=== PATIENT | female | born 1970 | race Hispanic/Latino ===

== ENCOUNTER 2020-11-08 06:31 | Emergency (ER) | payer OTHER ==
[~2020-11-08] VITALS: Ht 162.6 cm; Wt 113.9 kg
[~2020-11-08 06:31] MED LIST: GABAPENTIN300 MG PO; GLIMEPIRIDE2 MG PO; LISINOPRIL-HCT1 EACH PO; METFORMIN HCL500 MG PO; SIMVASTATIN20 MG PO
[2020-11-08] MEDS ORDERED: KETOROLAC TROMETHAMINE 30 MG/ML VIAL IV STA ×2 (06:40)
[2020-11-08] MEDS ORDERED: DEXAMETHASONE SOD PHOS 10 MG/1 ML VIAL IM ONE ×2 (06:45)
[2020-11-08] MEDS ORDERED: ACETAMINOPHEN/CODEINE 300MG - 30MG TAB PO ONE (07:00)
[2020-11-08 09:32] VITALS: BP 146/70
== END 2020-11-08 09:34 | disposition home or self-care (01) ==
LOC: ER 07:34
DX: M79.605 Pain in left leg (principal); E78.00 Pure hypercholesterolemia, unspecified; G62.9 Polyneuropathy, unspecified; L40.9 Psoriasis, unspecified
CPT/HCPCS: 73502; 73562; 99283; J1100; J1885

== ENCOUNTER 2021-10-08 21:40 | Emergency (ER) | payer OTHER ==
[~2021-10-08] VITALS: Ht 162.6 cm; Wt 113.9 kg
[~2021-10-08 21:40] MED LIST changes: +SODIUM CHLORIDE FLUSH 10 ML SYR IV PRN
[2021-10-08] MEDS ORDERED: ONDANSETRON HCL INJ 2MG/ML 2ML 2 MG/ML VIAL IV STA (23:17)
[2021-10-08 23:25] LABS: BASOPHILS % 0.4 % (0.0-1.0); EOSINOPHILS # (AUTO) 0.2 (0.0-0.4); EOSINOPHILS % 1.8 % (0.0-6.0); HEMATOCRIT 38.3 % (34.2-44.1); HEMOGLOBIN 12.6 g/dL (12.0-16.0); LYMPHOCYTES # (AUTO) 2.1 (1.0-3.2); LYMPHOCYTES % 22.8 % (18.0-39.1); MEAN CORPUSCULAR HEMOGLOBIN 30.8 pg (28-32); MEAN CORPUSCULAR HGB CONC 32.9 g/dL (31-35); MEAN CORPUSCULAR VOLUME 93.6 fL (81-99); MONOCYTES # (AUTO) 0.4 (0.2-0.8); MONOCYTES % 4.3 % (4.4-11.3); NEUTROPHILS # (AUTO) 6.6 (2.1-6.9); NEUTROPHILS % 70.4 % (38.7-80.0); PLATELET COUNT 373 x10e3/uL (140-360); RED BLOOD COUNT 4.09 x10e6/uL (3.6-5.1); RED CELL DISTRIBUTION WIDTH 12.5 % (11.7-14.4)
[2021-10-08 23:27] LABS: CLARITY,URINE CLEAR (CLEAR); COLOR,URINE YELLOW (YELLOW); LEUKOCYTE ESTERASE ,URINE NEGATIVE (NEGATIVE); NITRITE,URINE NEGATIVE (NEGATIVE)
[2021-10-08 23:28] LABS: KETONES,URINE NEGATIVE (NEGATIVE); PROTEIN,URINE DIPSTICK >=300 (NEGATIVE); URINE UROBILINOGEN 0.2 mg/dL (0.2 - 1)
[2021-10-08 23:30] LABS: BACTERIA,URINE FEW /HPF; EPITHELIAL CELLS,URINE MODERATE /LPF; YEAST,URINE MANY
[2021-10-08] MEDS ORDERED: Morphine 4mg INJECTION 4 MG/ML INJ IV ONE (23:30)
[2021-10-08 23:38] LABS: INR 0.8; PARTIAL THROMBOPLASTIN TIME 24.2 seconds (23.8-35.5); PROTHROMBIN TIME 11.9 seconds (11.9-14.5)
[2021-10-08 23:48] LABS: ALBUMIN/GLOBULIN RATIO 0.7 (0.8-2.0); ANION GAP 17.4 mmol/L (8-16); CALCIUM 9.1 mg/dL (8.4-10.2); CREATININE, SERUM 1.2 mg/dL (0.57-1.11); POTASSIUM 4.4 mmol/L (3.5-5.1)
[2021-10-09] MEDS ORDERED: INSULIN REGULAR, HUMAN 100 UNIT/1 ML IV ONE
[2021-10-09] MEDS ORDERED: INSULIN REGULAR, HUMAN 100 UNIT/1 ML SQ ONE ×2 (00:30)
[2021-10-09] MEDS ORDERED: KETOROLAC TROMETHAMINE 30 MG/ML VIAL IV STA (03:25)
[2021-10-09] MEDS ORDERED: ONDANSETRON ODT4 MG PO (03:31)
[2021-10-09] MEDS ORDERED: DIFLUCAN100 MG PO (03:31)
[2021-10-09] MEDS ORDERED: CEFDINIR300 MG PO (03:31)
[2021-10-09] MEDS ORDERED: NAPROSYN500 MG PO (03:31)
[2021-10-09 04:10] VITALS: BP_SYST 135
== END 2021-10-09 04:05 | disposition home or self-care (01) ==
LOC: ER 23:14
DX: R10.30 Lower abdominal pain, unspecified (principal); N30.90 Cystitis, unspecified without hematuria; D25.9 Leiomyoma of uterus, unspecified; E11.65 Type 2 diabetes mellitus with hyperglycemia; R11.0 Nausea; I10 Essential (primary) hypertension; E78.00 Pure hypercholesterolemia, unspecified; L40.50 Arthropathic psoriasis, unspecified; F17.210 Nicotine dependence, cigarettes, uncomplicated
CPT/HCPCS: 36415; 74176; 80053; 81001; 82948; 83690; 85025; 85610; 85730; 99284; J1817; J1885; J2270; J2405

== ENCOUNTER 2024-06-10 14:59 | Observation (INO) | payer BC, MEDICARE, OTHER ==
[~2024-06-10] VITALS: Ht 162.6 cm; Wt 89.8 kg
[~2024-06-10 14:59] MED LIST changes: +AZITHROMYCIN250 MG PO; +CEFDINIR300 MG PO; +DIFLUCAN100 MG PO; +NAPROSYN500 MG PO; +ONDANSETRON ODT4 MG PO; +PREDNISONE20 MG PO; -SODIUM CHLORIDE FLUSH 10 ML SYR IV PRN; +VENTOLIN HFA18 GM INH
[2024-06-10 15:05] VITALS: TEMP 98.3
[2024-06-10 15:49] LABS: BASOPHILS # (AUTO) 0.1 (0.0-0.1); BASOPHILS % 0.6 % (0.0-1.0); EOSINOPHILS # (AUTO) 0.3 (0.0-0.4); EOSINOPHILS % 2.8 % (0.0-6.0); HEMATOCRIT 35.3 % (34.2-44.1); HEMOGLOBIN 10.8 g/dL (12.0-16.0); LYMPHOCYTES # (AUTO) 1.2 (1.0-3.2); LYMPHOCYTES % 13.2 % (18.0-39.1); MEAN CORPUSCULAR HEMOGLOBIN 29.7 pg (28-32); MEAN CORPUSCULAR HGB CONC 30.6 g/dL (31-35); MONOCYTES # (AUTO) 0.3 (0.2-0.8); MONOCYTES % 3.4 % (4.4-11.3); NEUTROPHILS # (AUTO) 7.4 (2.1-6.9); NEUTROPHILS % 79.7 % (38.7-80.0); PLATELET COUNT 310 x10e3/uL (140-360); RED BLOOD COUNT 3.64 x10e6/uL (3.6-5.1); RED CELL DISTRIBUTION WIDTH 15.7 % (11.7-14.4); WHITE BLOOD COUNT 9.31 x10e3/uL (4.8-10.8)
[2024-06-10] MEDS: LIDOCAINE VISC 2% SOLN 15 ML UDC PO ONE (16:25)
[2024-06-10] MEDS: ONDANSETRON HCL INJ 2MG/ML 2ML 2 MG/ML VIAL IV STA (16:25)
[2024-06-10] MEDS: BELLADONNA ALK/PHENOBARBITAL 5 ML UDC PO STA (16:25)
[2024-06-10] MEDS: MAGNESIUM/ALUMINUM/SIMETHICONE 30 ML UDC PO ONE (16:26)
[2024-06-10 16:47] LABS: BILIRUBIN,URINE NEGATIVE (NEGATIVE); COLOR,URINE YELLOW (YELLOW); GLUCOSE, URINE 1+ (NEGATIVE); KETONES,URINE NEGATIVE (NEGATIVE); LEUKOCYTE ESTERASE ,URINE TRACE (NEGATIVE); NITRITE,URINE NEGATIVE (NEGATIVE); PH,URINE 5.5 (5 - 7); URINE UROBILINOGEN 0.2 mg/dL (0.2 - 1)
[2024-06-10 16:48] LABS: PROTEIN,URINE DIPSTICK >=300 (NEGATIVE)
[2024-06-10 16:49] LABS: CLARITY,URINE HAZY (CLEAR)
[2024-06-10 16:55] LABS: EPITHELIAL CELLS,URINE FEW /LPF; RBC,URINE 21-50 /HPF (0-5); WBC,URINE (MAN) 21-50 /HPF (0-5)
[2024-06-10 16:56] LABS: YEAST,URINE FEW
[2024-06-10] MEDS ORDERED: CEFDINIR300 MG PO (17:23)
[2024-06-10] MEDS: PROMETHAZINE 12.5MG/ NACL 0.9% 12.5 MG/50 ML BAG IV ONE (17:39)
[2024-06-10 17:52] VITALS: PULSE 92; RESP 18
[2024-06-10 17:53] LABS: TROPONIN I 0.026 ng/mL (0-0.300)
[2024-06-10 17:56] LABS: ALANINE AMINOTRANSFERASE 14 IU/L (0-55); ALBUMIN/GLOBULIN RATIO 0.7 (0.8-2.0); ALKALINE PHOSPHATASE 116 IU/L (40-150); ANION GAP 29.1 mmol/L (8-16); BILIRUBIN,TOTAL 0.2 mg/dL (0.2-1.2); BLOOD UREA NITROGEN 137 mg/dL (7-26); CALCIUM 8.2 mg/dL (8.4-10.2); CHLORIDE 109 mmol/L (98-107); CREATININE, SERUM 8.63 mg/dL (0.57-1.11); EST GLOMERULAR FILTRATION RATE 5 ML/MIN (>=60); GLUCOSE 127 mg/dL (74-118); LIPASE 57 U/L (8-78); SODIUM 140 mmol/L (136-145); TOTAL PROTEIN 7.3 g/dL (6.5-8.1)
[2024-06-10 18:00] LABS: CARBON DIOXIDE 8 mmol/L (22-29); POTASSIUM 6.1 mmol/L (3.5-5.1)
[2024-06-10 18:18] VITALS: PULSE 92; RESP 20; O2SAT 98
[2024-06-10] MEDS: ALBUTEROL SULF 0.083% NEB SOLN 3 ML NEB NEB STA (18:22)
[2024-06-10] MEDS: CALCIUM GLUC 1 G/50 ML NACL 50 ML IV SCH (18:35)
[2024-06-10] MEDS: SODIUM BICARBONATE 8.4% INJ 50 ML SYR IV STA (18:36)
[2024-06-10] MEDS: SOD POLYSTYRENE SULFONATE SUSP 15 GM/60 ML BTL PO ONE (18:36)
[2024-06-10] MEDS: INSULIN REGULAR, HUMAN 100 UNIT/1 ML IV ONE (18:38)
[2024-06-10] MEDS: DEXTROSE 50% SYRINGE 50 ML IV STA (18:38)
[2024-06-10 21:01] VITALS: BP 167/81; PULSE 89; RESP 20; TEMP 97.3; O2SAT 100
[2024-06-10 23:36] VITALS: BP 167/81; PULSE 89; RESP 20; TEMP 97.3; O2SAT 100
[2024-06-10 23:40] VITALS: BP 167/81; PULSE 89; RESP 20; TEMP 97.3; O2SAT 100
[2024-06-11] VITALS: BP 170/92; PULSE 92; RESP 16; TEMP 97.9; O2SAT 100
[2024-06-11] MEDS ORDERED: HEPARIN SOD (PORCINE) 1000 UNIT/ML SDV ONE (00:11)
[2024-06-11] MEDS ORDERED: SODIUM CHLORIDE 0.9% 250ML 250 ML ONE (00:26)
[2024-06-11] MEDS ORDERED: CALCIUM GLUC 1 G/50 ML NACL 50 ML IV ONE (00:38)
[2024-06-11] MEDS ORDERED: OMEPRAZOLE40 MG PO (01:36)
[2024-06-11] MEDS ORDERED: ATORVASTATIN CA20 MG PO (01:36)
[2024-06-11] MEDS ORDERED: BUPROPION XL150 MG PO (01:36)
[2024-06-11] MEDS ORDERED: CLONIDINE HCL0.1 MG PO ×2 (01:36→13:58)
[2024-06-11] MEDS ORDERED: AMLODIPINE BESY10 MG PO (01:36)
[2024-06-11] MEDS ORDERED: HYDROXYZINE HCL10 MG PO (01:36)
[2024-06-11] MEDS ORDERED: CALCIUM ACETAT667 M1 PO (01:36)
[2024-06-11] MEDS ORDERED: FUROSEMIDE40 MG PO (01:36)
[2024-06-11] MEDS ORDERED: SUMATRIPTAN SUC25 MG PO (01:36)
[2024-06-11] MEDS ORDERED: CYCLOBENZAPRINE10 MG PO (01:36)
[2024-06-11] MEDS ORDERED: SERTRALINE HCL50 MG PO (01:36)
[2024-06-11] MEDS ORDERED: FERROUS SULFAT325 MG PO (01:36)
[2024-06-11] MEDS ORDERED: BUTALB-ASPIRIN1 EACH (01:36)
[2024-06-11 04:00] VITALS: BP 186/87; PULSE 98; RESP 20; TEMP 98.2; O2SAT 94
[2024-06-11 05:48] LABS: BASOPHILS # (AUTO) 0.1 (0.0-0.1); BASOPHILS % 0.8 % (0.0-1.0); EOSINOPHILS # (AUTO) 0.2 (0.0-0.4); EOSINOPHILS % 3.6 % (0.0-6.0); HEMATOCRIT 29.8 % (34.2-44.1); HEMOGLOBIN 9.2 g/dL (12.0-16.0); LYMPHOCYTES # (AUTO) 1.1 (1.0-3.2); LYMPHOCYTES % 18.5 % (18.0-39.1); MEAN CORPUSCULAR HEMOGLOBIN 29.8 pg (28-32); MEAN CORPUSCULAR HGB CONC 30.9 g/dL (31-35); MEAN CORPUSCULAR VOLUME 96.4 fL (81-99); MONOCYTES # (AUTO) 0.4 (0.2-0.8); MONOCYTES % 6.3 % (4.4-11.3); NEUTROPHILS # (AUTO) 4.3 (2.1-6.9); NEUTROPHILS % 70.5 % (38.7-80.0); PLATELET COUNT 286 x10e3/uL (140-360); RED BLOOD COUNT 3.09 x10e6/uL (3.6-5.1); RED CELL DISTRIBUTION WIDTH 15.6 % (11.7-14.4); WHITE BLOOD COUNT 6.15 x10e3/uL (4.8-10.8)
[2024-06-11 06:30] LABS: ANION GAP 23.7 mmol/L (8-16); CALCIUM 8.7 mg/dL (8.4-10.2); CREATININE, SERUM 5.77 mg/dL (0.57-1.11); POTASSIUM 3.7 mmol/L (3.5-5.1)
[2024-06-11 08:00] VITALS: BP 174/98; PULSE 97; RESP 19; TEMP 97.6; O2SAT 94
[2024-06-11] MEDS ORDERED: SODIUM CHLORIDE 0.9% 1000ML 2,000 ML ONE (10:20)
[2024-06-11] MEDS ORDERED: HEPARIN SOD (PORCINE) 1000 UNIT/ML SDV IV PRN ×2 (11:30→11:45)
[2024-06-11] MEDS ORDERED: ALBUMIN 25% 12.5GM 0.25 GM/ML BTL IV PRN (11:30)
[2024-06-11] MEDS ORDERED: SODIUM CHLORIDE 0.9% 1000ML 2,000 ML IV PRN (11:30)
[2024-06-11 12:00] VITALS: BP 204/99; PULSE 99; RESP 16; TEMP 97.6; O2SAT 97
[2024-06-11] MEDS ORDERED: CEFUROXIME250 MG PO (13:54)
[2024-06-11] MEDS ORDERED: SODIUM BICARBO650 MG PO (13:58)
[2024-06-11] MEDS ORDERED: LABETALOL HCL200 MG PO (13:58)
[2024-06-11] MEDS: LABETALOL HCL 200 MG TAB PO SCH (15:21)
[2024-06-11] MEDS: CLONIDINE HCL 0.1 MG TAB PO SCH (15:22)
[2024-06-11 16:00] VITALS: BP 192/92; PULSE 99; RESP 18; TEMP 97.8; O2SAT 98
[2024-06-11] MEDS: SODIUM BICARBONATE 650 MG TAB PO SCH (16:53)
== END 2024-06-11 19:10 | disposition home or self-care (01) ==
LOC: ER 15:16 → ERHOLD 18:06 → MED/SURG2 19:53
PROVIDERS: ADMIT Internal Medicine; ATTEND Internal Medicine
DX: E87.5 Hyperkalemia (principal); I12.0 Hypertensive chronic kidney disease with stage 5 chronic kidney disease or end stage renal disease; N39.0 Urinary tract infection, site not specified; E11.65 Type 2 diabetes mellitus with hyperglycemia; E11.22 Type 2 diabetes mellitus with diabetic chronic kidney disease; N18.6 End stage renal disease; Z99.2 Dependence on renal dialysis; E11.51 Type 2 diabetes mellitus with diabetic peripheral angiopathy without gangrene; Z79.84 Long term (current) use of oral hypoglycemic drugs; E87.20 Acidosis, unspecified
CPT/HCPCS: 36415 ×2; 71045; 80048; 80053; 81001; 82948; 83690; 84484; 85025 ×2; 87086; 90970 ×2; 93005; 94640; 94799; 99284; G0378 ×2; J0696; J1644; J2405; J2470; J2550; J7030; J7050; J7799

== ENCOUNTER 2024-09-09 17:26 | Inpatient (IN) | payer BC ==
[~2024-09-09] VITALS: Ht 162.6 cm; Wt 89.8 kg
[~2024-09-09 17:26] MED LIST changes: +AMLODIPINE BESY10 MG PO; +ATORVASTATIN CA20 MG PO; +BUPROPION XL150 MG PO; +BUTALB-ASPIRIN1 EACH; +CALCIUM ACETAT667 M1 PO; +CEFUROXIME250 MG PO; +CLONIDINE HCL0.1 MG PO; +CYCLOBENZAPRINE10 MG PO; +FERROUS SULFAT325 MG PO; +FUROSEMIDE40 MG PO; +HYDROXYZINE HCL10 MG PO; +LABETALOL HCL200 MG PO; +OMEPRAZOLE40 MG PO; +SERTRALINE HCL50 MG PO; +SODIUM BICARBO650 MG PO; +SUMATRIPTAN SUC25 MG PO
[2024-09-09 17:30] VITALS: TEMP 97.7
[2024-09-09] MEDS: SODIUM CHLORIDE 0.9% 1000ML 1,000 ML IV STA (18:50)
[2024-09-09] MEDS: ONDANSETRON HCL INJ 2MG/ML 2ML 2 MG/ML VIAL IV STA (18:50)
[2024-09-09] MEDS: Morphine 4mg INJECTION 4 MG/ML INJ IV STA (18:51)
[2024-09-09] MEDS: MAGNESIUM/ALUMINUM/SIMETHICONE 30 ML UDC PO STA (18:51)
[2024-09-09] MEDS: LIDOCAINE VISC 2% SOLN 15 ML UDC PO STA (18:51)
[2024-09-09] MEDS: BELLADONNA ALK/PHENOBARBITAL 5 ML UDC PO ONE (18:51)
[2024-09-09 19:03] LABS: BASOPHILS % 0.7 % (0.0-1.0); EOSINOPHILS % 3.1 % (0.0-6.0); LYMPHOCYTES % 17.6 % (18.0-39.1); MONOCYTES % 6.2 % (4.4-11.3); NEUTROPHILS % 71.9 % (38.7-80.0); RED CELL DISTRIBUTION WIDTH 18.5 % (11.7-14.4)
[2024-09-09 19:14] LABS: LEUKOCYTE ESTERASE ,URINE NEGATIVE (NEGATIVE); PROTEIN,URINE DIPSTICK >=300 (NEGATIVE); URINE UROBILINOGEN 0.2 mg/dL (0.2 - 1)
[2024-09-09 19:50] LABS: EPITHELIAL CELLS,URINE FEW /LPF
[2024-09-09 19:51] LABS: FINE GRANULAR CASTS,URINE 0 (0); HYALINE CASTS 0-1 (0-1)
[2024-09-09 19:54] LABS: COARSE GRANULAR CASTS,URINE 0 (0)
[2024-09-09 20:12] LABS: EST GLOMERULAR FILTRATION RATE 62 ML/MIN (>=60)
[2024-09-09] MEDS: PROMETHAZINE 25MG/ NS 50ML (IV) IV PRN (20:25)
[2024-09-09] MEDS ORDERED: IOPAMIDOL 370 MG/ML 100 ML INFUS..BTL INJ ONE (20:29)
[2024-09-09] MEDS ORDERED: PIPERACILLIN/TAZOBACTAM 3.375 GM VIAL ONE (22:41)
[2024-09-09] MEDS ORDERED: SODIUM CHLORIDE 0.9% 0 ML ONE (22:42)
[2024-09-09] MEDS: HYDRALAZINE HCL 20 MG/ML VIAL IV PRN (23:03)
[2024-09-10] VITALS (11 sets, daily range): BP systolic 152–184; BP diastolic 83–90; PULSE 89–100; RESP 16–18; TEMP 97.2–98; O2SAT 93–100
[2024-09-10] MEDS: SODIUM CHLORIDE 0.9% 1000ML 1,000 ML IV SCH (00:15)
[2024-09-10] MEDS ORDERED: HYDROCHLOROTHIA25 MG PO (02:38)
[2024-09-10] MEDS ORDERED: IMITREX50 MG PO (02:38)
[2024-09-10] MEDS ORDERED: NEURONTIN400 MG PO (02:38)
[2024-09-10] MEDS ORDERED: SUMATRIPTAN SUC25 MG PO (02:38)
[2024-09-10] MEDS ORDERED: ONDANSETRON ODT8 MG PO (02:38)
[2024-09-10] MEDS ORDERED: CEFUROXIME250 MG PO (02:38)
[2024-09-10] MEDS ORDERED: CEFDINIR300 MG PO (02:38)
[2024-09-10] MEDS ORDERED: PANTOPRAZOLE SO40 MG PO (02:38)
[2024-09-10] MEDS: ONDANSETRON HCL INJ 2MG/ML 2ML 2 MG/ML VIAL IV PRN (05:47)
[2024-09-10 09:34] LABS: INR 1.04
[2024-09-10] MEDS: PIPERACILLIN/TAZOBACTAM 3.375 GM VIAL ONE (10:04)
[2024-09-10] MEDS: Morphine 4mg INJECTION 4 MG/ML INJ IV PRN (12:55)
[2024-09-10] MEDS ORDERED: ALBUMIN 25% 12.5GM 0.25 GM/ML BTL IV PRN (15:15)
[2024-09-10] MEDS ORDERED: SODIUM CHLORIDE 0.9% IV PRN (15:15)
[2024-09-11] VITALS (7 sets, daily range): BP systolic 145–184; BP diastolic 75–94; PULSE 87–97; RESP 18–21; TEMP 97.3–97.8; O2SAT 94–100
[2024-09-11 06:30] LABS: HEPATITIS B SURFACE AB QUANT 41.7 mIU/mL (Immunity>10); HEPATITIS B SURFACE AG (P) Negative (Negative)
[2024-09-11] MEDS: POLYETHYLENE GLYCOL 3350 17 GM PACK PO SCH (09:00)
[2024-09-11] MEDS: ATORVASTATIN 20 MG TAB PO SCH (09:05)
[2024-09-11] MEDS: AMLODIPINE BESYLATE 10 MG TAB PO SCH (09:09)
[2024-09-11] MEDS: DIPHENHYDRAMINE HCL 25 MG CAP PO PRN (09:11)
[2024-09-11] MEDS: ACETAMINOPHEN 325 MG TAB PO PRN (09:11)
[2024-09-11] MEDS ORDERED: ACETAMINOPHEN325 M1 PO (11:57)
[2024-09-11] MEDS ORDERED: ONDANSETRON ODT4 MG PO (11:57)
== END 2024-09-11 17:38 | disposition home or self-care (01) | DRG 391 ==
LOC: ER 17:46 → ERHOLD 09-10 00:08 → ER 09-10 01:57 → MED/SURG3 09-10 03:36
PROVIDERS: ADMIT Internal Medicine; ATTEND Internal Medicine
PROC: 5A1D70Z Performance of Urinary Filtration, Intermittent, Less than 6 Hours Per Day (ICD-10-PCS; principal; 2024-09-10)
DX: A08.4 Viral intestinal infection, unspecified (principal); N18.6 End stage renal disease; I12.0 Hypertensive chronic kidney disease with stage 5 chronic kidney disease or end stage renal disease; J90 Pleural effusion, not elsewhere classified; I16.0 Hypertensive urgency; E11.22 Type 2 diabetes mellitus with diabetic chronic kidney disease; L40.50 Arthropathic psoriasis, unspecified; E11.42 Type 2 diabetes mellitus with diabetic polyneuropathy; E78.5 Hyperlipidemia, unspecified; R09.02 Hypoxemia; I25.10 Atherosclerotic heart disease of native coronary artery without angina pectoris; E66.9 Obesity, unspecified; G43.909 Migraine, unspecified, not intractable, without status migrainosus; E11.65 Type 2 diabetes mellitus with hyperglycemia; K21.9 Gastro-esophageal reflux disease without esophagitis; D63.1 Anemia in chronic kidney disease; Z91.040 Latex allergy status; Z91.018 Allergy to other foods; Z79.84 Long term (current) use of oral hypoglycemic drugs; Z99.2 Dependence on renal dialysis; Z68.34 Body mass index [BMI] 34.0-34.9, adult; Z99.81 Dependence on supplemental oxygen
CPT/HCPCS: 36415; 71045; 74177; 80053; 81001; 82550; 82948; 83690; 83880; 84484; 85025; 85610; 86706; 87340; 93005; 94799; 99284; J0360; J2270; J2405; J2470; J2543; J2550; J7030; J7050; Q9967

== ENCOUNTER 2024-12-01 17:15 | Inpatient (IN) | payer BC ==
[~2024-12-01] VITALS: Ht 162.6 cm; Wt 86.6 kg
[~2024-12-01 17:15] MED LIST changes: +ACETAMINOPHEN325 M1 PO; +HYDROCHLOROTHIA25 MG PO; +IMITREX50 MG PO; +NEURONTIN400 MG PO; +ONDANSETRON ODT8 MG PO; +PANTOPRAZOLE SO40 MG PO
[2024-12-01 18:13] VITALS: PULSE 76; RESP 18; TEMP 97.7; O2SAT 96
[2024-12-01] MEDS ORDERED: SODIUM CHLORIDE 0.9% 1000ML 1,000 ML IV STA (18:38)
[2024-12-01] MEDS ORDERED: Morphine 4mg INJECTION 4 MG/ML INJ IV STA (18:38)
[2024-12-01 18:44] LABS: BASOPHILS % 1.1 % (0.0-1.0); EOSINOPHILS % 5.0 % (0.0-6.0); LYMPHOCYTES % 23.1 % (18.0-39.1); MONOCYTES % 4.3 % (4.4-11.3); NEUTROPHILS % 66.1 % (38.7-80.0); RED CELL DISTRIBUTION WIDTH 15.9 % (11.7-14.4)
[2024-12-01 19:02] LABS: EST GLOMERULAR FILTRATION RATE 11.0 ML/MIN (>=60)
[2024-12-01] MEDS: KETOROLAC TROMETHAMINE 30 MG/ML VIAL IV STA (20:34)
[2024-12-01] MEDS: ONDANSETRON HCL INJ 2MG/ML 2ML 2 MG/ML VIAL IV STA (20:34)
[2024-12-01] MEDS ORDERED: SODIUM CHLORIDE FLUSH 10 ML SYR INJ PRN (21:00)
[2024-12-01] MEDS ORDERED: SEVOFLURANE INHAL SOLN 250 ML PEN BTL ONE (22:40)
[2024-12-01] MEDS: Morphine 4mg INJECTION 4 MG/ML INJ IM STA (23:42)
[2024-12-01] MEDS: Morphine 4mg INJECTION 4 MG/ML INJ IV PRN (23:42)
[2024-12-02] VITALS (8 sets, daily range): BP systolic 147–161; BP diastolic 64–77; PULSE 70–82; RESP 19–22; TEMP 97.6–97.9; O2SAT 95–100
[2024-12-02] MEDS: ONDANSETRON HCL INJ 2MG/ML 2ML 2 MG/ML VIAL IV PRN (02:48)
[2024-12-02] MEDS ORDERED: GUAIFENESIN/DEXTROMETHORPHAN LIQD 5 ML UDC PO PRN (03:45)
[2024-12-02 05:48] LABS: BASOPHILS % 0.8 % (0.0-1.0); EOSINOPHILS % 5.9 % (0.0-6.0); LYMPHOCYTES % 20.2 % (18.0-39.1); MONOCYTES % 9.0 % (4.4-11.3); NEUTROPHILS % 63.9 % (38.7-80.0); RED CELL DISTRIBUTION WIDTH 15.8 % (11.7-14.4)
[2024-12-02 06:13] LABS: EST GLOMERULAR FILTRATION RATE 9.0 ML/MIN (>=60)
[2024-12-02 06:45] LABS: INR 1.15
[2024-12-02] MEDS ORDERED: POLYETHYLENE GLYCOL 3350 17 GM PACK PO PRN (08:45)
[2024-12-02] MEDS: FOLIC ACID/CYANOCOB/PYRIDOXINE TAB PO SCH (12:59)
[2024-12-02] MEDS: LOPERAMIDE HCL 2 MG CAP PO ONE (12:59)
[2024-12-02 14:38] LABS: BODY FLUID COLOR YELLOW; BODY FLUID TYPE PLEURAL
[2024-12-02 14:39] LABS: BODY FLUID APPEARANCE CLEAR
[2024-12-02 14:44] LABS: WBC,BODY FLUID 88 cells/uL
[2024-12-02 15:32] LABS: LYMPHOCYTES,BODY FLUID 10 %; MONO/MACROPHG,BODY FLUID 14 %; NEUTROPHILS,BODY FLUID 2 %; OTHER CELLS,BODY FLUID 64 %; TOTAL CELLS COUNTED (DIFF) 100
[2024-12-02] MEDS ORDERED: LABETALOL HCL200 MG PO (15:42)
[2024-12-02] MEDS ORDERED: CLONIDINE HCL0.2 MG PO (15:42)
[2024-12-02] MEDS ORDERED: INSULIN AS100 UNIT/3 (15:42)
[2024-12-02] MEDS ORDERED: ZOLOFT50 MG PO (15:42)
[2024-12-02] MEDS ORDERED: DICYCLOMINE HCL10 MG PO (15:42)
[2024-12-02] MEDS ORDERED: INSULIN AS100 UNIT/2 (15:42)
[2024-12-02] MEDS ORDERED: INSULIN GL100 UNIT/1 SC (15:42)
[2024-12-02] MEDS: METOCLOPRAMIDE HCL 10 MG TAB PO SCH (17:10)
[2024-12-02] MEDS ORDERED: LOKELMA5 GM PO (17:18)
[2024-12-02] MEDS ORDERED: DICYCLOMINE HCL 10 MG CAP PO PRN (21:30)
[2024-12-02] MEDS: SERTRALINE HCL 50 MG TAB PO SCH (21:57)
[2024-12-02] MEDS: ATORVASTATIN 20 MG TAB PO SCH (21:57)
[2024-12-02] MEDS: BUPROPION HCL 150 MG TABCR PO SCH (21:57)
[2024-12-02] MEDS: PANTOPRAZOLE SOD 40 MG TABEC PO SCH (21:57)
[2024-12-03] VITALS (8 sets, daily range): BP systolic 109–148; BP diastolic 60–85; PULSE 66–97; RESP 16–20; TEMP 97.5–98.5; O2SAT 94–100
[2024-12-03] MEDS: METOCLOPRAMIDE HCL 10 MG/2ML VIAL IV SCH (05:39)
[2024-12-03] MEDS: LABETALOL HCL 200 MG TAB PO SCH (05:40)
[2024-12-03 05:53] LABS: BASOPHILS % 0.8 % (0.0-1.0); EOSINOPHILS % 6.0 % (0.0-6.0); LYMPHOCYTES % 17.3 % (18.0-39.1); MONOCYTES % 6.8 % (4.4-11.3); NEUTROPHILS % 68.6 % (38.7-80.0); RED CELL DISTRIBUTION WIDTH 15.9 % (11.7-14.4)
[2024-12-03 06:42] LABS: CHOL/HDL RATIO 2.5 (3.0-3.6); EST GLOMERULAR FILTRATION RATE 7.0 ML/MIN (>=60); LDL CHOLESTEROL 59.0 MG/DL (60-130)
[2024-12-03] MEDS: CLONIDINE HCL 0.2 MG TAB PO SCH (09:00)
[2024-12-03] MEDS: GABAPENTIN 400 MG CAP PO SCH (09:00)
[2024-12-03] MEDS ORDERED: SODIUM CHLORIDE 0.9% 1000ML 2,000 ML IV PRN (09:00)
[2024-12-03 18:00] LABS: GLUCOSE,BODY FLUID 170.0 mg/dL; TOTAL PROTEIN,BODY FLUID 3.4 g/dL
[2024-12-04 01:02] VITALS: BP 138/75; PULSE 87; RESP 18; TEMP 97.3; O2SAT 100
[2024-12-04 05:28] LABS: HEPATITIS B SURFACE AB QUANT 20.6 mIU/mL (Immunity>10); HEPATITIS B SURFACE AG (P) Negative (Negative)
[2024-12-04 06:13] VITALS: BP 144/57; PULSE 73; RESP 16; TEMP 97.7; O2SAT 99
[2024-12-04 08:00] VITALS: BP 135/55; PULSE 76; RESP 20; TEMP 98.2; O2SAT 92
[2024-12-04 12:30] VITALS: BP 135/69; PULSE 72; RESP 17; TEMP 97.5; O2SAT 97
[2024-12-04] MEDS ORDERED: LIDOCAINE HCL 2% LOCAL INJ 5 ML SDV VIAL INJ ONE (17:30)
[2024-12-04] MEDS ORDERED: PROPOFOL IV EMULSION 10 MG/ML 20 ML VIAL ONE (17:30)
[2024-12-04] MEDS ORDERED: ONDANSETRON HCL INJ 2MG/ML 2ML 2 MG/ML VIAL ONE (17:31)
[2024-12-04] MEDS ORDERED: FENTANYL CITRATE/PF 100MCG/2 ML INJ ONE (17:32)
[2024-12-04 20:00] VITALS: BP 148/69; PULSE 69; RESP 20; TEMP 98; O2SAT 100
[2024-12-04 21:57] VITALS: BP 148/69; PULSE 69; RESP 20; TEMP 98; O2SAT 100
[2024-12-05] VITALS (10 sets, daily range): BP systolic 136–163; BP diastolic 57–85; PULSE 67–75; RESP 17–21; TEMP 97.1–98.9; O2SAT 96–100
[2024-12-05 08:21] LABS: EST GLOMERULAR FILTRATION RATE 7.0 ML/MIN (>=60)
[2024-12-05] MEDS: ALBUTEROL/IPRATROPIUM 3 ML NEB NEB PRN (23:15)
[2024-12-06] VITALS (9 sets, daily range): BP systolic 134–168; BP diastolic 64–92; PULSE 66–76; RESP 16–22; TEMP 97.3–99; O2SAT 97–100
[2024-12-06 06:44] LABS: BASOPHILS % 0.9 % (0.0-1.0); EOSINOPHILS % 7.5 % (0.0-6.0); LYMPHOCYTES % 17.9 % (18.0-39.1); MONOCYTES % 9.4 % (4.4-11.3); NEUTROPHILS % 64.0 % (38.7-80.0); RED CELL DISTRIBUTION WIDTH 16.3 % (11.7-14.4)
[2024-12-06 07:12] LABS: EST GLOMERULAR FILTRATION RATE 9.0 ML/MIN (>=60)
[2024-12-06] MEDS: AMLODIPINE BESYLATE 10 MG TAB PO SCH ×2 (12:30→17:10)
[2024-12-06] MEDS: DOCUSATE SODIUM 100 MG CAP PO PRN (20:50)
[2024-12-07] VITALS (10 sets, daily range): BP systolic 98–155; BP diastolic 65–85; PULSE 64–79; RESP 16–20; TEMP 97.3–98; O2SAT 95–100
[2024-12-07] MEDS: LACTULOSE SYRUP 20 GM/30 ML UDC PO STA (09:46)
[2024-12-07] MEDS: SOD POLYSTYRENE SULFONATE SUSP 15 GM/60 ML BTL PO STA (09:48)
[2024-12-07 14:57] LABS: EST GLOMERULAR FILTRATION RATE 6.0 ML/MIN (>=60)
[2024-12-08] VITALS (10 sets, daily range): BP systolic 120–169; BP diastolic 58–75; PULSE 69–87; RESP 18–20; TEMP 97.7–98.6; O2SAT 93–100
[2024-12-08 13:13] LABS: AMPHETAMINES SCREEN,URINE NEGATIVE (NEGATIVE); CANNABINOIDS SCREEN,URINE NEGATIVE (NEGATIVE); COCAINE SCREEN,URINE POSITIVE (NEGATIVE); METHADONE SCREEN, URINE NEGATIVE (NEGATIVE); OPIATES SCREEN,URINE POSITIVE (NEGATIVE)
[2024-12-08 13:51] LABS: EST GLOMERULAR FILTRATION RATE 7.0 ML/MIN (>=60)
[2024-12-08] MEDS: ACETAMINOPHEN 325 MG TAB PO PRN (22:11)
[2024-12-09] VITALS (11 sets, daily range): BP systolic 119–153; BP diastolic 49–83; PULSE 65–88; RESP 18–20; TEMP 97.2–98.3; O2SAT 100
[2024-12-09] MEDS ORDERED: DEXTROSE 50% SYRINGE 50 ML IV PRN (13:45)
[2024-12-09] MEDS: IBUPROFEN 400 MG TAB PO PRN (14:24)
[2024-12-09] MEDS: Morphine 2mg Syringe 2 MG/ML SYR IV PRN (16:12)
[2024-12-09] MEDS: INSULIN LISPRO 100 UNIT/1 ML 3ML VIAL SQ SCH (17:06)
[2024-12-10] VITALS (10 sets, daily range): BP systolic 122–164; BP diastolic 32–83; PULSE 67–89; RESP 16–20; TEMP 97.7–98.7; O2SAT 96–100
[2024-12-10 06:36] LABS: EST GLOMERULAR FILTRATION RATE 8.0 ML/MIN (>=60)
[2024-12-10] MEDS ORDERED: ALBUMIN 25% 12.5GM 0.25 GM/ML BTL IV PRN (08:45)
[2024-12-10] MEDS ORDERED: SODIUM CHLORIDE 0.9% 1000ML 2,000 ML IV PRN (08:45)
[2024-12-10] MEDS: MELATONIN 3 MG TAB PO PRN (21:33)
[2024-12-11] VITALS (14 sets, daily range): BP systolic 138–165; BP diastolic 50–83; PULSE 60–82; RESP 16–20; TEMP 97.3–98.7; O2SAT 95–100
[2024-12-11 09:03] LABS: HEPATITIS A ANTIBODY IGM (P) Negative; HEPATITIS B CORE IGM (P) Negative; HEPATITIS B SURFACE AG (P) Negative
[2024-12-11] MEDS: ALBUMIN 25% 12.5GM 50ML 0 ML IV ONE (09:24)
[2024-12-11] MEDS ORDERED: FENTANYL CITRATE/PF 100MCG/2 ML INJ ONE (13:46)
[2024-12-11] MEDS ORDERED: PROPOFOL IV EMULSION 10 MG/ML 20 ML VIAL ONE (13:47)
[2024-12-11] MEDS ORDERED: SODIUM CHLORIDE 0.9% INJ 10 ML VIAL ONE ×2 (13:48→13:49)
[2024-12-11] MEDS ORDERED: LIDOCAINE HCL 2% LOCAL INJ 5 ML SDV VIAL INJ ONE (13:48)
[2024-12-11] MEDS ORDERED: ONDANSETRON HCL INJ 2MG/ML 2ML 2 MG/ML VIAL ONE (13:48)
[2024-12-11] MEDS ORDERED: SUGAMMADEX SODIUM 200 MG/2 ML VIAL IV ONE ×2 (15:42→15:43)
[2024-12-11] MEDS ORDERED: SUCCINYLCHOLINE CHLORIDE 20 MG/ML 10ML VIAL ONE (16:09)
[2024-12-12] VITALS (11 sets, daily range): BP systolic 125–168; BP diastolic 57–82; PULSE 69–79; RESP 18–20; TEMP 97–98.6; O2SAT 94–100
[2024-12-12 07:02] LABS: EST GLOMERULAR FILTRATION RATE 8.0 ML/MIN (>=60)
[2024-12-12] MEDS: Morphine 2mg Syringe 2 MG/ML SYR IV PRN (10:14)
[2024-12-12] MEDS: HYDROCODONE/APAP 5MG-325MG TAB PO PRN (14:37)
[2024-12-12] MEDS: HEPARIN SOD (PORCINE) 5,000 UNIT/ML VIAL SC SCH (22:34)
[2024-12-13] VITALS (9 sets, daily range): BP systolic 126–164; BP diastolic 52–77; PULSE 60–75; RESP 18–20; TEMP 97.4–98.2; O2SAT 94–100
[2024-12-13] MEDS: Morphine 2mg Syringe 2 MG/ML SYR IV PRN (21:39)
[2024-12-13] MEDS: METOCLOPRAMIDE HCL 10 MG/2ML VIAL IV SCH (23:57)
[2024-12-14] VITALS (13 sets, daily range): BP systolic 16–142; BP diastolic 54–86; PULSE 65–71; RESP 17–19; TEMP 97.4–98.4; O2SAT 95–100
[2024-12-14 05:05] LABS: BASOPHILS % 0.5 % (0.0-1.0); EOSINOPHILS % 9.1 % (0.0-6.0); LYMPHOCYTES % 21.1 % (18.0-39.1); MONOCYTES % 10.8 % (4.4-11.3); NEUTROPHILS % 58.3 % (38.7-80.0); RED CELL DISTRIBUTION WIDTH 16.0 % (11.7-14.4)
[2024-12-14 05:36] LABS: EST GLOMERULAR FILTRATION RATE 9.0 ML/MIN (>=60)
[2024-12-14 05:59] LABS: LEUKOCYTE ESTERASE ,URINE SMALL (NEGATIVE); PROTEIN,URINE DIPSTICK >=300 (NEGATIVE); URINE UROBILINOGEN 0.2 mg/dL (0.2 - 1)
[2024-12-14 06:23] LABS: EPITHELIAL CELLS,URINE MANY /LPF; WBC,URINE (MAN) >50 /HPF (0-5)
[2024-12-14] MEDS: SOD POLYSTYRENE SULFONATE SUSP 15 GM/60 ML BTL PO ONE (09:06)
[2024-12-14] MEDS: LACTULOSE SYRUP 20 GM/30 ML UDC PO ONE (09:06)
[2024-12-14] MEDS ORDERED: SODIUM CHLORIDE 0.9% 250ML 250 ML IV ONE (09:15)
[2024-12-14] MEDS: LOKELMA 10 GM PO ONE (12:26)
[2024-12-14] MEDS: HEPARIN SOD (PORCINE) 5,000 UNIT/ML VIAL SC SCH (21:21)
[2024-12-15 05:27] VITALS: BP 121/68; PULSE 66; RESP 20; TEMP 98.5; O2SAT 95
[2024-12-15 06:44] LABS: BASOPHILS % 0.5 % (0.0-1.0); EOSINOPHILS % 6.2 % (0.0-6.0); LYMPHOCYTES % 15.2 % (18.0-39.1); MONOCYTES % 11.1 % (4.4-11.3); NEUTROPHILS % 66.7 % (38.7-80.0); RED CELL DISTRIBUTION WIDTH 16.5 % (11.7-14.4)
[2024-12-15 06:45] VITALS: PULSE 68; RESP 20; O2SAT 96
[2024-12-15 06:56] LABS: EST GLOMERULAR FILTRATION RATE 7.0 ML/MIN (>=60)
[2024-12-15 08:00] VITALS: BP 109/55; PULSE 88; RESP 18; TEMP 98.5; O2SAT 99
[2024-12-15] MEDS ORDERED: SODIUM CHLORIDE 0.9% 1000ML 2,000 ML IV PRN (10:00)
[2024-12-15] MEDS ORDERED: HEPARIN SOD (PORCINE) 1000 UNIT/ML SDV IV PRN ×2 (10:00)
[2024-12-15 12:06] VITALS: BP 128/63; PULSE 66; RESP 19; TEMP 98.3; O2SAT 97
[2024-12-15] MEDS: SODIUM CHLORIDE 0.9% 250ML 250 ML IV ONE (12:29)
[2024-12-15] MEDS: HYDRALAZINE HCL 20 MG/ML VIAL IV PRN (14:22)
[2024-12-15] MEDS: CALCIUM GLUC 1 G/50 ML NACL 50 ML IV ONE (14:52)
[2024-12-15 16:00] VITALS: BP 139/91; PULSE 96; RESP 19; TEMP 99.5; O2SAT 98
[2024-12-15 19:30] VITALS: PULSE 96; RESP 20; O2SAT 96
== END 2024-12-15 19:55 | disposition home or self-care (01) | DRG 981 ==
LOC: ER 17:46 → ERHOLD 20:52 → MED/SURG2 12-02 07:29
PROVIDERS: ADMIT Internal Medicine; ATTEND Internal Medicine
PROC: 0W9B3ZZ Drainage of Left Pleural Cavity, Percutaneous Approach (ICD-10-PCS; 2024-12-02)
PROC: 5A1D70Z Performance of Urinary Filtration, Intermittent, Less than 6 Hours Per Day (ICD-10-PCS; 2024-12-03)
PROC: 0DB78ZX Excision of Stomach, Pylorus, Via Natural or Artificial Opening Endoscopic, Diagnostic (ICD-10-PCS; 2024-12-04)
PROC: 0DB98ZX Excision of Duodenum, Via Natural or Artificial Opening Endoscopic, Diagnostic (ICD-10-PCS; 2024-12-04)
PROC: 0DB68ZX Excision of Stomach, Via Natural or Artificial Opening Endoscopic, Diagnostic (ICD-10-PCS; principal; 2024-12-04 17:37)
PROC: 0QSG04Z Reposition Right Tibia with Internal Fixation Device, Open Approach (ICD-10-PCS; 2024-12-11)
PROC: 0LQQ0ZZ Repair Right Knee Tendon, Open Approach (ICD-10-PCS; 2024-12-11)
PROC: 0SCC0ZZ Extirpation of Matter from Right Knee Joint, Open Approach (ICD-10-PCS; 2024-12-11)
PROC: 30233N1 Transfusion of Nonautologous Red Blood Cells into Peripheral Vein, Percutaneous Approach (ICD-10-PCS; 2024-12-15)
DX: K29.70 Gastritis, unspecified, without bleeding (principal); N18.6 End stage renal disease; S82.151A Displaced fracture of right tibial tuberosity, initial encounter for closed fracture; I12.0 Hypertensive chronic kidney disease with stage 5 chronic kidney disease or end stage renal disease; J90 Pleural effusion, not elsewhere classified; E87.20 Acidosis, unspecified; E87.1 Hypo-osmolality and hyponatremia; K92.1 Melena; J98.11 Atelectasis; E11.22 Type 2 diabetes mellitus with diabetic chronic kidney disease; I16.0 Hypertensive urgency; Z99.2 Dependence on renal dialysis; E11.40 Type 2 diabetes mellitus with diabetic neuropathy, unspecified; D63.1 Anemia in chronic kidney disease; E87.5 Hyperkalemia; E78.5 Hyperlipidemia, unspecified; K20.90 Esophagitis, unspecified without bleeding; E87.70 Fluid overload, unspecified; R11.2 Nausea with vomiting, unspecified; L40.50 Arthropathic psoriasis, unspecified; L40.9 Psoriasis, unspecified; K59.00 Constipation, unspecified; R19.7 Diarrhea, unspecified; F41.9 Anxiety disorder, unspecified; R74.8 Abnormal levels of other serum enzymes; E66.01 Morbid (severe) obesity due to excess calories; R25.1 Tremor, unspecified; Z68.32 Body mass index [BMI] 32.0-32.9, adult; W18.30XA Fall on same level, unspecified, initial encounter; Z90.49 Acquired absence of other specified parts of digestive tract; Z90.710 Acquired absence of both cervix and uterus; Z91.040 Latex allergy status; Z91.018 Allergy to other foods; Z87.891 Personal history of nicotine dependence; Z82.49 Family history of ischemic heart disease and other diseases of the circulatory system
CPT/HCPCS: 32555; 36415; 43239; 71045; 72220; 74177; 74470; 76000; 80048; 80053; 80061; 80307; 81001; 82550; 82945; 82948; 83036; 83615; 83690; 83735; 84132; 84157; 84439; 84443; 84484; 85025; 85610; 85730; 86706; 86850; 86900; 86920; 87070; 87086; 87205; 87340; 88112; 88305; 89051; 93306; 94640; 94799; 99284; C1713; J0330; J0360; J0690; J1644; J1885; J2003; J2270; J2405; J2470; J2765; J7030; J7050; P9016

== ENCOUNTER 2024-12-15 23:05 | Emergency (ER) | payer BC ==
[~2024-12-15] VITALS: Ht 162.6 cm; Wt 86.6 kg
[~2024-12-15 23:05] MED LIST changes: +CLONIDINE HCL0.2 MG PO; +DICYCLOMINE HCL10 MG PO; +INSULIN AS100 UNIT/2; +INSULIN AS100 UNIT/3; +INSULIN GL100 UNIT/1 SC; +LOKELMA5 GM PO; +ZOLOFT50 MG PO
[2024-12-15 23:10] VITALS: TEMP 98.7
[2024-12-16 01:00] VITALS: PULSE 84; RESP 17
[2024-12-16] MEDS: Morphine 4mg INJECTION 4 MG/ML INJ IM STA (01:06)
[2024-12-16 01:27] VITALS: BP 163/75; PULSE 86; RESP 18; O2SAT 98
== END 2024-12-16 01:15 | disposition home or self-care (01) ==
LOC: ER 23:10
DX: M25.561 Pain in right knee (principal); X50.1XXA Overexertion from prolonged static or awkward postures, initial encounter; Y92.89 Other specified places as the place of occurrence of the external cause; I12.0 Hypertensive chronic kidney disease with stage 5 chronic kidney disease or end stage renal disease; E11.22 Type 2 diabetes mellitus with diabetic chronic kidney disease; E11.65 Type 2 diabetes mellitus with hyperglycemia; N18.6 End stage renal disease; Z99.2 Dependence on renal dialysis; E78.5 Hyperlipidemia, unspecified; Z85.41 Personal history of malignant neoplasm of cervix uteri
CPT/HCPCS: 99283; J2270